=== PATIENT | male | born 1975 | race Caucasian/White ===

== ENCOUNTER 2021-11-22 20:08 | Emergency (ER) | payer OTHER ==
[2021-11-22 20:44] VITALS: BP 134/91; PULSE 100; TEMP 98.5; BMI 32.8
[2021-11-22] MEDS ORDERED: DIPHTH,PERTUSS(ACELL),TET 0.5 ML DISP.SYRIN IM ONE ×2 (22:25→22:30)
[2021-11-22] MEDS ORDERED: CEPHALEXIN MONOHYDRATE 500 MG CAPSULE (UD) PO ONE (22:25)
[2021-11-22] MEDS ORDERED: CEPHALEXIN MONOHYDRATE 500 MG CAPSULE (UD) ONE (22:30)
== END 2021-11-22 23:01 | disposition home or self-care (01) ==
LOC: FER 20:08
PROC: 3E0234Z Introduction of Serum, Toxoid and Vaccine into Muscle, Percutaneous Approach (ICD-10-PCS; principal; 2021-11-22)
DX: S02.2XXA Fracture of nasal bones, initial encounter for closed fracture (principal); S01.81XA Laceration without foreign body of other part of head, initial encounter; Y04.8XXA Assault by other bodily force, initial encounter
CPT/HCPCS: 70486-TC; 90715; 99284-25